=== PATIENT | male | born 1995 | race Two or more races ===

== ENCOUNTER 2018-09-14 10:04 | Emergency (ER) | payer OTHER ==
[~2018-09-14] VITALS: Ht 172.7 cm; Wt 59.1 kg
[2018-09-14 10:22] VITALS: BP 117/82; Ht 172.7 cm; Wt 59.1 kg
[2018-09-14 10:59] LABS: AMPHETAMINE QUAL UR NONE DETECTED (See below)
== END 2018-09-14 11:14 | disposition home or self-care (01) ==
LOC: ED 10:04
PROVIDERS: Emergency Medicine
DX: F12.10 Cannabis abuse, uncomplicated (principal); J45.909 Unspecified asthma, uncomplicated; Z13.89 Encounter for screening for other disorder